=== PATIENT | female | born 1990 | race Caucasian/White ===

== ENCOUNTER 2018-08-16 12:10 | Emergency (ER) | payer MEDICAID, OTHER ==
[2018-08-16] MEDS ORDERED: ONDANSETRON DISINTEGRATING 4 MG TAB PO ONE (13:09)
[2018-08-16] MEDS ORDERED: MECLIZINE HCL 25 MG TAB PO ONE (13:30)
--- NOTE | 2018-08-16 13:32 | EDPHY ---
H & P Stated Complaint: Vertigo Time Seen by Provider: 08/16/18 13:13 HPI/ROS: CHIEF COMPLAINT: Vertigo HISTORY OF PRESENT ILLNESS: The patient presents to the ED with typical symptoms of benign positional vertigo which began last night. She reports associated nausea and vomiting. The patient denies any history of fall or trauma. She denies any headache. She denies any acute numbness or weakness. The patient denies any fever recent infectious symptoms. She describes fairly typical symptoms of BPV worsened with head movement to both the right and left. Patient has had mild bouts of vertigo in the past which have been self- limited. She denies any chiropractic manipulation. She denies any neck pain or recent neck injury. REVIEW OF SYSTEMS: A comprehensive 10 point review of systems is otherwise negative aside from elements mentioned in the history of present illness. Source: Patient Exam Limitations: No limitations - Personal History LMP (Females 10-55): 1-7 Days Ago Current Tetanus Diphtheria and Acellular Pertussis (TDAP): Yes - Medical/Surgical History Hx Asthma: No Hx Chronic Respiratory Disease: No Hx Diabetes: No Hx Cardiac Disease: No Hx Renal Disease: No Hx Cirrhosis: No Hx Alcoholism: No Hx HIV/AIDS: No Hx Splenectomy or Spleen Trauma: No Other PMH: denies - Social History Smoking Status: Never smoked - Physical Exam Exam: General Appearance: Alert, no distress Eyes: Pupils equal and round no pallor or injection ENT, Mouth: Mucous membranes moist Respiratory: There are no retractions, lungs are clear to auscultation Cardiovascular: Regular rate and rhythm Gastrointestinal: Abdomen is soft and nontender, no masses, bowel sounds normal Neurological: A&O, normal motor function, normal sensory exam, normal cranial nerves, mild horizontal nystagmus noted with leftward gaze Skin: Warm and dry, no rashes Musculoskeletal: Neck is supple nontender Extremities: symmetrical, full range of motion Constitutional: Initial Vital Signs Temperature (C) 36.9 C 08/16/18 12:29 Heart Rate 53 L 08/16/18 12:29 Respiratory Rate 18 08/16/18 12:29 Blood Pressure 114/63 08/16/18 12:29 O2 Sat (%) 97 08/16/18 12:29 O2 Delivery Mode Room Air Allergies/Adverse Reactions: No Known Allergies Allergy (Unverified 08/16/18 12:28) Home Medications: Medication Instructions Recorded Meclizine HCl 25 mg PO TID PRN #20 tablet 08/16/18 Ondansetron Odt [Zofran Odt] 4 mg PO Q4PRN PRN #20 tab 08/16/18 Medical Decision Making ED Course/Re-evaluation: Patient presents the ED with classic symptoms of benign positional vertigo. There is nothing to suggest central vertigo on exam. The patient will be treated with meclizine and Zofran in the emergency department. The patient was re-evaluated at 3:00 p.m.. She is ambulatory with markedly improved symptoms. The patient will be discharged home with a prescription for Zofran and meclizine. She is given customary aftercare instructions and return precautions. The patient has been referred to our on-call Ear Nose Throat physician. Differential Diagnosis: Differential diagnosis considered includes benign positional vertigo, labyrinthitis, dehydration, metabolic derangement - Data Points Laboratory Results: Laboratory Results 08/16/18 13:35 08/16/18 08/16/18 13:35 13:35 Sodium 139 mEq/L mEq/L (135-145) Potassium 5.2 mEq/L mEq/L (3.5-5.2) Chloride 110 mEq/L mEq/L (97-110) Carbon Dioxide 18 mEq/l L mEq/l (22-31) Anion Gap 11 mEq/L mEq/L (6-14) BUN 16 mg/dL mg/dL (7-23) Creatinine 0.7 mg/dL mg/dL (0.6-1.0) Estimated GFR > 60 Glucose 83 mg/dL mg/dL (70-100) Calcium 9.4 mg/dL mg/dL (8.5-10.4) Beta HCG, Qual NEGATIVE Specimen Hemolysis 139 Medications Given: Discontinued Medications Meclizine HCl (Meclizine Hcl) 25 mg PO EDNOW ONE Stop: 08/16/18 13:31 Last Admin: 08/16/18 13:34 Dose: 25 mg Ondansetron HCl (Zofran Odt) 4 mg PO EDNOW ONE Stop: 08/16/18 13:10 Last Admin: 08/16/18 13:12 Dose: 4 mg Departure - Departure Disposition: Home, Routine, Self-Care Clinical Impression: Vertigo Condition: Good Instructions: Meclizine (By mouth), Ondansetron (By mouth), Vertigo (ED) Additional Instructions: 1. Meclizine as needed for recurrent vertigo. 2. Zofran as needed for nausea. 3. Please follow up with the Ear Nose Throat physician you have been referred to for further evaluation of your vertigo. 4. Please return to the ED for markedly worsening symptoms, any numbness/ weakness in your arms or legs. Referrals: Aimee Mirza MD [Medical Doctor] - As per Instructions Prescriptions: Meclizine HCl 25 mg PO TID PRN #20 tablet PRN Reason: for dizzyness Ondansetron Odt [Zofran Odt] 4 mg PO Q4PRN PRN #20 tab PRN Reason: For Nausea
[2018-08-16 15:04] VITALS: BP 112/63
== END 2018-08-16 15:21 | disposition home or self-care (01) ==
DX: R42 Dizziness and giddiness (principal)